=== PATIENT | female | born 1965 | race Caucasian/White ===

== ENCOUNTER 2017-09-12 15:38 | Emergency (ER) | payer OTHER ==
[~2017-09-12] VITALS: Ht 157.5 cm; Wt 83.9 kg
[~2017-09-12 15:38] MED LIST: CLARINEX5 MG/TAB
== END 2017-09-12 22:28 | disposition home or self-care (01) ==
LOC: ER 15:38
DX: K42.9 Umbilical hernia without obstruction or gangrene (principal); L76.34 Postprocedural seroma of skin and subcutaneous tissue following other procedure

== ENCOUNTER 2018-03-20 08:53 | Emergency (ER) | payer OTHER ==
[~2018-03-20] VITALS: Ht 157.5 cm; Wt 79.8 kg
== END 2018-03-20 11:57 | disposition home or self-care (01) ==
LOC: ER 08:53
DX: S00.03XA Contusion of scalp, initial encounter (principal); W18.39XA Other fall on same level, initial encounter; Y93.89 Activity, other specified; Y92.89 Other specified places as the place of occurrence of the external cause; Y99.8 Other external cause status